=== PATIENT | male | born 1965 | race Caucasian/White ===

== ENCOUNTER 2019-02-07 05:23 | Day surgery (SDC) | payer OTHER ==
[2019-02-06 14:54] VITALS: BMI 23.3
--- NOTE | 2019-02-07 09:49 | HP ---
Satellite [facility] [place] - Chief Complaint Chief Complaint: left wrist mass - Current Medications Current Medications: Home Medications Medication Instructions Recorded Hydrocodone/Acetaminophen 1 each PO Q6H #20 tablet MDD 4 02/07/19 [Hydrocodone-Acetamin 5-325 mg] Satellite Physical Exam - Physical Examination General Appearance: Well Nourished, Well Developed, Alert & Oriented x3 ENT: Clear Lung: Normal air movement Heart: Regular rate & rhythm Extremities: Other (left wrist- + mass, +ttp, ROM wnl, mvi) Neurological: Intact, Alert, Oriented Satellite Impression/Plan - Impression/Plan Impression: left wrist ganglion cyst Operative Procedure: left wrist ganglion cyst excision Date to be Performed: 02/07/19
[2019-02-07] MEDS ORDERED: BUPIVACAINE HCL/PF 0.5% (5MG/ML) 10 ML VIAL ONE ×2 (10:33→11:28)
[2019-02-07] MEDS ORDERED: LIDOCAINE HCL 1%, 10 MG/ML (20ML VIAL) ONE (11:28)
[2019-02-07] MEDS ORDERED: ONDANSETRON 4 MG/2 ML VIAL IVPUSH PRN (11:38)
[2019-02-07] MEDS ORDERED: oxyCODONE HCL 5 MG TABLET PO PRN (11:38)
[2019-02-07] MEDS ORDERED: LACTATED RINGERS SOLUTION 1,000 ML IV SCH (11:45)
[2019-02-07] MEDS ORDERED: ceFAZolin SODIUM 1 GM VIAL IVPB ONE (11:56)
[2019-02-07] MEDS ORDERED: MIDAZOLAM HCL 2 MG/2 ML SINGLE DOSE VIAL ONE (11:57)
[2019-02-07] MEDS ORDERED: LIDOCAINE HCL 1%, 10 MG/ML (20ML VIAL) INF ONE (12:32)
[2019-02-07] MEDS ORDERED: BUPIVACAINE HCL/PF (5 MG/ML) 30 ML VIAL IJ ONE (12:33)
[2019-02-07] MEDS ORDERED: oxyCODONE HCL 5 MG TABLET PO ONE (13:07)
[2019-02-07] MEDS ORDERED: oxyCODONE HCL 5 MG TABLET ONE (13:09)
[2019-02-07 14:13] VITALS: BP 115/70; PULSE 48; TEMP 97.4
--- NOTE | 2019-02-08 08:48 | OP ---
DATE OF OPERATION: 02/07/2019 PREOPERATIVE DIAGNOSIS: Left wrist ganglion cyst. POSTOPERATIVE DIAGNOSIS: Left wrist ganglion cyst and compression neuropathy median nerve. PROCEDURE: Left wrist ganglion cyst excision and limited median nerve epineurotomy. DRAINS: None. COMPLICATIONS: None. SPECIMEN: Mass left wrist. BLOOD LOSS: None. BLOOD GIVEN: None. FLUID REPLACEMENT: PlasmaLyte, 500 mL. SURGEON: Melo Ernandez MD ASSISTANTS: None. FINANCIAL ADMINISTRATION OFFICER: Norm Garcia CRNA ANESTHESIA: MAC anesthesia, local injection of 12 mL of 0.5% Marcaine and 1% lidocaine mixed. INDICATIONS: This patient is a 53-year-old male with a painful volar radial left wrist ganglion cyst. After understanding the potential risks, complications, alternatives, and benefits of surgery versus nonsurgical treatment, the patient elected to undergo this procedure. He understands there is a risk of recurrence. There is risk of the pain not going away if this involves another nerve. All questions and concerns were addressed. DESCRIPTION OF PROCEDURE: The patient was brought to the operating room, peripheral IV placed and IV sedation given. Then, 2 g of IV Ancef were given. MAC anesthesia was induced. A tourniquet was applied to the left upper arm, and the left upper extremity was prepped and draped in sterile fashion. A longitudinal incision was then marked out over the volar radial aspect of the left wrist. I did a longitudinal incision partially because the ganglion cyst was more oblique in a longitudinal direction. The left upper extremity was then elevated and exsanguinated with an Esmarch bandage. Tourniquet was inflated to 250 mmHg. The entire case was done under 3.8 loupe magnification. Incision was made with a No. 15 scalpel blade. Subcutaneous hemostasis was achieved with the bipolar cautery. Great care was taken the entire time to avoid crossing neurovascular structures. I dissected with Littler scissors on the ulnar aspect of the radial artery and the radial aspect of the median nerve. There was what looked to be a decompressed ganglion cyst tangled among adipose tissue and pushing on the volar aspect of the median nerve. Great care was taken to circumferential dissect around this. A stalk was identified and it was decapitated at its base. It did not seem to trace all the way down to the volar wrist capsule. The FCR tendon looked fine, but I did release some of its sheath because the patient had a lot of tenderness in this area. There were no abnormalities at the insertion point or any other point around the FCR. First I did some dissection on the radial side, then, the ulnar side of the FCR tendon just to make sure nothing else was going on in this area including any involvement of any other small clusters of ganglion cysts. None were identified. A Weitlaner retractor was placed into the wound. The FCR tendon was retracted in a radial direction. Here, every time I got into the median nerve, patient was extremely jumpy and sensitive. I did use additional local anesthetic. The Weitlaner retractor was then placed into the wound retracting the FCR tendon in a radial direction. I did a limited epineurotomy of about 3 cm of the median nerve that seemed to have a mild hourglass deformity in the very distal forearm about 2 cm proximal to the volar wrist crease. It was not in the carpal tunnel. As I was doing this, the patient was extremely jumpy leading me to believe that the median nerve was quite irritated. I gently opened up just the epineurium and dissected on the radial and ulnar aspect of this portion of the nerve. There were no branches here. Additional local was used to bathe the median nerve in local anesthesia. There was another mass that looked to be a decompressed ganglion cyst that came up to the ulnar aspect of the median nerve at this location, and therefore, because there was an hourglass deformity here, as well, I can presume that although at the moment it was more decompressed, it looks like it may have been pressing on this area. Great care was taken to do circumferential dissection around this abnormal tissue which included ganglion cyst and some adipose tissue, and it was excised and passed off the field as part of the same specimen. There were no clustered neurovascular structures in this area. The area was copiously irrigated and washed out. Again, I inspected the area. I did not see any other abnormal tissue. I did remove tissue in the area of the previous swelling, although it was not as if there was a large fluid-filled ganglion cyst. Then, 4-0 undyed Vicryl was used to close the deep dermal layer. Final skin reapproximation was done with a running subcuticular 4-0 Biosyn stitch. The area was then washed and dried and covered with Steri-Strips, 4x4s, Webril and Coban. Tourniquet was taken down after total tourniquet time of about 35 minutes. There were no complications during the case. The patient tolerated the procedure quite well and was brought to the ambulatory recovery room in stable condition. MELO ERNANDEZ M.D. [id number]
--- NOTE | 2019-02-08 16:49 | PATH ---
Surgical Pathology Report Patient Name: PRICE TEIXEIRA [facility]. Rec. #: [id number] /Age/Gender: 1965 (Age: 53) / M Account: [id number] Location: [facility] Taken: 02/07/2019 Received: 02/07/2019 Reported: 02/08/2019 Physicians: Melo Weiss M.D. Specimen(s) Received GANGLION CYST LEFT WRIST Clinical History Ganglion cyst left wrist Final Diagnosis WRIST, LEFT, GANGLION CYST, EXCISION: FIBROCONNECTIVE TISSUE WITH FOCAL MYXOID CHANGE COMPATIBLE WITH GANGLION CYST. Electronically Signed Richa Andrew M.D. Gross Description Received in formalin labeled "ganglion cyst left wrist" are multiple irregular fragments of white-suarez soft tissue measuring2.5 x 2 x 0.3 cm in aggregate. The entire specimen is submitted in one cassette. MLSZ/02/07/2019 sanml/02/07/2019
== END 2019-02-07 14:10 | disposition home or self-care (01) ==
LOC: JASU-SURG 05:23
PROVIDERS: ATTEND Orthopaedic Surgery
PROC: 0LB60ZZ Excision of Left Lower Arm and Wrist Tendon, Open Approach (ICD-10-PCS; principal; 2019-02-07 12:00)
DX: M67.432 Ganglion, left wrist (principal); G56.10 Other lesions of median nerve, unspecified upper limb
CPT/HCPCS: 88304-TC